=== PATIENT | male | born 1980 | race Caucasian/White ===

== ENCOUNTER 2018-04-28 08:01 | Emergency (ER) | payer MEDICAID ==
[2018-04-28 08:12] VITALS: BP 167/107
--- NOTE | 2018-04-28 08:28 | EDPHY ---
H & P Time Seen by Provider: 04/28/18 08:09 HPI/ROS: CHIEF COMPLAINT: Arm wound History by patient HISTORY OF PRESENT ILLNESS: 38-year-old man presents complaining of wound on his left forearm. Patient is a regular methamphetamine user and states that he developed an abscess although he is not sure if he shot in that area or not. He says that he then used a needle to trying puncture at and had pus draining out on this continues to drain and be swollen and painful. He has place iodine on the wound as well as tried to debrided himself. 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 Because aneurysm he had left- sided weakness and although he has predominantly left-handed he now uses his right hand. He denies picking at the lesion but does admit to regular methamphetamine use which he says he usually smokes not injected. He has no prior history of abscesses or MRSA that he knows of. REVIEW OF SYSTEMS: As in HPI, and all other systems reviewed and are negative Smoking Status: Current every day smoker Physical Exam: General Appearance: Alert and no distress. Afebrile. Head: Normocephalic, atraumatic Eyes: Pupils equal and round no injection. Extraocular movements are intact. Musculoskeletal: Neck is supple and nontender. Extremities: Left arm positive 3 by 4 cm open wound with granulation tissue, serous drainage and no obvious purulence or odor. There is scant surrounding erythema with minimal tenderness. Patient has full range of motion of his left elbow, wrist and all fingers. Radial, median and ulnar nerve function are intact both motor and sensory although he has some subjective sensory deficits versus his right which he says are chronic, radial pulses 2+ and equal to the right, distal cap refills less than 2 sec.. Skin: No rashes or lesions except as described above. Constitutional: Initial Vital Signs Temperature (C) 37.3 C 04/28/18 08:10 Heart Rate 104 H 04/28/18 08:10 Respiratory Rate 18 04/28/18 08:10 Blood Pressure 167/107 H 04/28/18 08:10 O2 Sat (%) 98 04/28/18 08:10 O2 Delivery Mode Room Air Allergies/Adverse Reactions: No Known Allergies Allergy (Unverified 04/28/18 08:09) Home Medications: Medication Instructions Recorded Sulfamethox/Tmp 800/160 mg 1 tab PO BID #14 tab 04/28/18 [Bactrim Ds] MDM/Departure - [facility] ED Course/Re-evaluation: 38-year-old man presents with draining wound on left arm likely related to methamphetamine injection. There is no evidence of drainable abscess. Although patient denies skin picking, I am concerned that this is partially related to that given the superficial nature of the wound and the uneven edges. There is no evidence of fever or serious systemic toxicity or nerve or tendon involvement. I will give the patient a trial of MRSA covering antibiotics and wound care. Patient states he can follow up with her physician in [place] near where he lives. - Depart Disposition: Home, Routine, Self-Care Clinical Impression: Abscess, Elevated blood pressure reading Condition: Good Instructions: Abscess (ED) Additional Instructions: You were seen by Dr. Jazz Acosta today. Soak your arm 3 times a day in warm soapy water. Do not put hydrogen peroxide directly on your wound. Do not put iodine solution directly on your wound. Do not touch or pick at your wound. Keep it covered with a wet to dry wound dressing. Take antibiotics as prescribed. I recommend taking probiotics in between doses of antibiotics. Please follow-up for wound recheck in 48 hr and sooner if worse including but not limited to fever, increased pain, spreading or streaking redness or difficulty using her left hand. Your blood pressure was elevated today. This is likely related to your methamphetamine use. Stop using methamphetamines! They will kill you! Return for any worsening or new concerns. Prescriptions: Sulfamethox/Tmp 800/160 mg [Bactrim Ds] 1 tab PO BID #14 tab Referrals: Patient,NotPresent [Primary Care Provider] - As per Instructions
== END 2018-04-28 08:46 | disposition home or self-care (01) ==
LOC: CED 08:01
DX: L03.114 Cellulitis of left upper limb (principal); R03.0 Elevated blood-pressure reading, without diagnosis of hypertension; F15.10 Other stimulant abuse, uncomplicated; F17.200 Nicotine dependence, unspecified, uncomplicated
CPT/HCPCS: 99283-ER